=== PATIENT | female | born 1990 | race Caucasian/White ===

== ENCOUNTER 2022-12-06 19:27 | Outpatient (CLI) | payer OTHER | END 2022-12-06 19:28 | disposition EMS.NT | LOC: EMS 19:27 | DX: R55 Syncope and collapse (principal) ==

== ENCOUNTER 2023-04-01 17:21 | Emergency (ER) | payer OTHER ==
[2023-04-01 17:30] VITALS: O2SAT 100
--- NOTE | 2023-04-01 21:12 | ED Physician Documentation ---
PD HPI BACK PAIN - Stated complaint Stated Complaint: BACK PX - Chief complaint Chief Complaint: Back Pain - History obtained from History obtained from: Patient - Additional information Additional information: HPI from patient. Patient complains of sudden onset, but mild, lower back pain in the midline. This occurred 2 days ago when she was lifting a heavy Pender present. Since onset, this pain has been constant, and steadily/gradually worsening. It is becoming more severe and spikes in severity with less and less inciting activity. Today, she is having pain even with ambulating. She denies numbness, weakness, urinary/bowel incontinence. She denies history of similar symptoms. She has past medical history includes back surgery for a disc problem several years ago. She has taken ibuprofen without adequate relief of her symptoms. Review of Systems Constitutional: denies: Fever GI: denies: Abdominal Pain : denies: Unable to Void, Incontinent Musculoskeletal: reports: Back pain Neurologic: denies: Focal weakness, Numbness PD PAST MEDICAL HISTORY - Past Medical History Past Medical History: Yes Cardiovascular: None Respiratory: None Neuro: None Endocrine/Autoimmune: None GI: None UNIVERSITY INTERN: None : None HEENT: None Psych: None Musculoskeletal: None Derm: None - Past Surgical History Past Surgical History: Yes Ortho: Spine surgery - Present Medications Home Medications: Ambulatory Orders Medication Instructions Recorded Confirmed Cyclobenzaprine [Flexeril] 10 mg PO TID PRN #20 tablet 04/01/23 Oxycodone HCl/Acetaminophen 1 - 2 each PO Q6H PRN #14 tablet 04/01/23 [Percocet 5-325 mg Tablet] - Allergies Allergies/Adverse Reactions: Allergies Allergy/AdvReac Type Severity Reaction Status Date / Time Penicillins Allergy Itching Verified 04/01/23 17:25 - Social History Does the pt smoke?: No Smoking Status: Never smoker Does the pt drink ETOH?: No Does the pt have substance abuse?: No - Immunizations Immunizations are current?: Yes PD ED PE NORMAL - Vitals Vital signs reviewed: Yes - General General: Alert and oriented X 3, No acute distress (NAD at rest but appears to be in painful distress when trying to sit up (for pulmonary auscultation and back exam)), Well developed/nourished - Respiratory Respiratory: No respiratory distress, Clear bilaterally - Back Back: No CVA TTP, No spinal TTP - Derm Derm: No rash - Neuro Neuro: No motor deficit (5/5 bilateral dorsi/plantarflexion), No sensory deficit (LTS intact BLE), Other (2+/4 bilateral patellar DTR without clonus) Results - Vitals Vitals: Vital Signs - 24 hr 04/01/23 22:13 Temperature 36.5 C Heart Rate 88 Respiratory 16 Rate Blood Pressure 114/70 O2 Saturation 100 Oxygen O2 Source Room air PD Medical Decision Making - ED course Complexity details: considered differential, d/w patient ED course: HPI and physical exam are consistent with lumbar strain. Testing (including imaging) is not indicated emergently at this time. She has no "red flags" (such as fever, weakness, bladder/bowel incontinence). She is given oxycodone and Flexeril p.o. in the emergency department with "take- home" packs of both these medications, and I electronically submitting prescriptions for these medications to [facility] pharmacy in [place]. Return precautions discussed. I am prescribing a short course of short-acting opioid pain medication for this patient. I have reviewed the patients [employer] and no concerning findings were noted. I have discussed that the opioids are for short term therapy only, and will not be refilled from the ED. Departure - Departure Disposition: 01 Home, Self Care Clinical Impression: Back pain Qualifiers: Back pain location: low back pain Chronicity: acute Back pain laterality: midline Sciatica presence: without sciatica Qualified Code(s): M54.50 - Low back pain, unspecified Condition: Good Instructions: NARCOTIC, Oral, ED Neck Back Pain General Follow-Up: [facility] [Provider Group] Prescriptions: Cyclobenzaprine [Flexeril] 10 mg PO TID PRN #20 tablet PRN Reason: Spasms Oxycodone HCl/Acetaminophen [Percocet 5-325 mg Tablet] 1 - 2 each PO Q6H PRN #14 tablet PRN Reason: pain Comments: I have electronically submitted prescriptions for Percocet (opiate/narcotic pain medication) and cyclobenzaprine (muscle relaxant) [facility] in [place]. Follow-up with your primary care provider within 3 to 5 days unless the symptoms resolve entirely. I am prescribing a short course of narcotic pain medication for you. These are potentially dangerous and addictive medications that should be used carefully. These medications may constipate you. Take an [id number] stool softener (docusate) twice daily with plenty of water while taking these medications. If you go 24 hours without a bowel movement, take [id number] miralax, per package instructions. Do not drink or drive while taking these medications. If you received narcotic or sedating medications while in the emergency department, do not drive for 24 hours. Store this medication in a safe, secure place and out of reach of children. It is a violation of federal law to give or sell this medication to another person or to use in a manner other than prescribed. The ED will not refill narcotic prescriptions, including prescriptions lost or stolen. To dispose of unwanted medications: 1. [facility] at [address] in [place] has a medication drop box. They accept prescription medications (in pill form) Monday through Monday 9:00 a.m. to 5:00 p.m. 2. The [facility] [employer] accepts prescription medications (in pill form only) for disposal year round. Call for more information. 3. Contact the [facility] for the next [facility] sponsored prescription drug collection event. , [phone], or [phone]; Discharge Date/Time: 04/01/23 22:13
[2023-04-01] MEDS ORDERED: CYCLOBENZAPRINE 10 MG Prepack 2 PO PRN (21:31)
[2023-04-01] MEDS ORDERED: oxyCODONE 5 MG TABLET PO STA (21:31)
[2023-04-01] MEDS ORDERED: CYCLOBENZAPRINE 10 MG TABLET PO STA (21:31)
[2023-04-01] MEDS ORDERED: oxyCODONE/ACET 5/325 Prepack 4 PO STA (21:31)
[2023-04-01 22:14] VITALS: BP 114/70
== END 2023-04-01 22:13 | disposition home or self-care (01) ==
LOC: ED 17:21
DX: M54.50 Low back pain, unspecified (principal)
CPT/HCPCS: 99282; 99283; A9270

== ENCOUNTER 2023-07-14 08:00 | Outpatient (CLI) | payer OTHER | END 2023-07-14 23:59 | disposition home or self-care (01) | LOC: LAB.N 08:00 | PROVIDERS: ATTEND Family Medicine | DX: R50.9 Fever, unspecified (principal) | CPT/HCPCS: 87086 ==